=== PATIENT | male | born 1990 | race Caucasian/White ===

== ENCOUNTER 2019-01-31 17:44 | Emergency (ER) | payer OTHER ==
[~2019-01-31] VITALS: Ht 175.3 cm; Wt 77.1 kg
[2019-01-31] MEDS ORDERED: FISH OIL 1,0001 EAC3 PO (18:04)
== END 2019-01-31 20:00 | disposition home or self-care (01) ==
LOC: ED 17:44
DX: S06.0X1A Concussion with loss of consciousness of 30 minutes or less, initial encounter (principal); W22.8XXA Striking against or struck by other objects, initial encounter; Z91.030 Bee allergy status; Z79.899 Other long term (current) drug therapy
CPT/HCPCS: 70450; 80053; 85025; 99284-25

== ENCOUNTER 2019-02-02 10:01 | Emergency (ER) | payer OTHER ==
[~2019-02-02] VITALS: Ht 175.3 cm; Wt 77.1 kg
[~2019-02-02 10:01] MED LIST: FISH OIL 1,0001 EAC3 PO
--- OUTSIDE RECORDS SUMMARY | 2019-02-02 10:04 | XMS ---
PreManage Notification: [facility] [place] [employer] Events No recent Security Events currently on file CRITERIA MET - [facility] - 2 Visits in 30 Days CARE PROVIDERS There are no care providers on record at this time. Talya has no Care Guidelines for this patient. Ebony VISIT COUNT (12 MO.) [address] [facility] TOTAL 2 NOTE: Visits indicate total known visits. ED/C VISIT TRACKING (12 MO.) 02/02/2019 10:02 [facility] TYPE: Emergency COMPLAINT: - HEAD PAIN FOLLOW UP/INJURY 01/31/2019 17:[address] [facility] [place] TYPE: Emergency COMPLAINT: - HEAD INJURY INPATIENT VISIT TRACKING (12 MO.) No inpatient visits to display in this time frame [email or web address]
[2019-02-02] MEDS ORDERED: ONDANSETRON ODT8 MG PO (10:39)
== END 2019-02-02 10:49 | disposition home or self-care (01) ==
LOC: ED 10:01
DX: S06.0X9A Concussion with loss of consciousness of unspecified duration, initial encounter (principal); Z91.030 Bee allergy status; W22.8XXA Striking against or struck by other objects, initial encounter
CPT/HCPCS: 99283